=== PATIENT | female | born 1945 | race Hispanic/Latino ===

== ENCOUNTER → 2023-08-02 09:26 | Outpatient (REF) | payer MEDICARE, BC, SELFPAY | LOC: WDC 09:26 | PROVIDERS: ATTENDING PHYSICIAN Family Medicine Geriatric Medicine; FAMILY PHYSICIAN Internal Medicine Geriatric Medicine | DX: M85.89 Other specified disorders of bone density and structure, multiple sites (principal); Z12.31 Encounter for screening mammogram for malignant neoplasm of breast | CPT/HCPCS: 77063; 77067; 77080 ==

== ENCOUNTER → 2023-12-07 10:52 | Outpatient (REF) | payer MEDICARE, BC, SELFPAY | LOC: HWRCS 10:52 | PROVIDERS: ATTENDING PHYSICIAN Internal Medicine Cardiovascular Disease; FAMILY PHYSICIAN Internal Medicine Geriatric Medicine | DX: I10 Essential (primary) hypertension (principal); I35.0 Nonrheumatic aortic (valve) stenosis; Z92.3 Personal history of irradiation | CPT/HCPCS: 93306 ==

== ENCOUNTER → 2024-01-12 10:53 | Outpatient (REF) | payer MEDICARE, BC, SELFPAY ==
[2024-01-12 11:24] LABS: Urine Albumin Negative (Neg - Trace); Urine Bilirubin Negative (Negative); Urine Character Clear (Clear); Urine Color Yellow; Urine Glucose Negative (Negative); Urine Ketone Negative (Negative); Urine Leukocyte Negative (Negative); Urine Nitrite Negative (Negative); Urine Occult Blood Negative (Negative); Urine Urobilinogen Negative (Neg - 1+)
[2024-01-12 11:25] LABS: % Basophils 0.6 % (0-2); % Immature Granulocytes 0.2 % (0-0.5); % Lymphocytes 15.3 % (20.5-51.1); % Monocytes 4.9 % (1.7-9.3); Absolute Basophils 0.1 10^3/uL (0-0.2); Absolute Eosinophils 0.1 10^3/uL (0-0.7); Absolute Lymphocytes 1.4 10^3/uL (1.2-3.4); Absolute Monocytes 0.5 10^3/uL (0.1-0.6); Absolute Neutrophils 7.3 10^3/uL (1.4-6.5); Hematocrit 45.6 % (37.0-47.0); Hemoglobin 15.3 g/dL (12.0-16.0); Mean Corp Hgb Conc. 33.6 g/dL (33.0-37.0); Mean Corpuscular Hgb 30.8 pg (27.0-31.0); Mean Corpuscular Volume 91.8 fL (81.0-99.0); Mean Platelet Volume 9.6 fL (7.4-10.4); Nucleated Red Blood Cells % 0 %; Platelet Count 319 10^3/uL (130-400); Red Blood Cell Count 4.97 10^6/uL (4.20-5.40); Red Cell Dist. Width 12.8 % (11.5-14.5); White Blood Cell Count 9.4 10^3/uL (4.8-10.8)
[2024-01-12 11:27] LABS: Ionized Calcium 1.18 mMOL/L (1.15-1.33)
[2024-01-12 11:55] LABS: ALT (SGPT) 23 U/L (0-35); AST (SGOT) 28 U/L (14-36); Albumin 4.7 g/dl (3.5-5.0); Alkaline Phosphatase 39 U/L (38-126); Blood Urea Nitrogen 14 mg/dl (7-17); Carbon Dioxide 29 mmol/L (22-30); Chloride 99 mmol/L (98-107); Glucose 102 mg/dl (70-99); HDL Cholesterol 73 mg/dl; LDL Cholesterol, Calculated 97 mg/dl; Potassium 4.4 mmol/L (3.5-5.1); Sodium 141 mmol/L (135-145); Total Bilirubin 0.5 mg/dl (0.2-1.3); Total Cholesterol 207 mg/dl (50-199); Total Protein 7.7 g/dl (6.3-8.2); Triglyceride 186 mg/dl (10-149); Very Low Density Lipoprotein 37 mg/dl (0-30); eGFR > 60.00
[2024-01-12 12:11] LABS: Vitamin D, 25-OH*** 54.2 ng/mL (30-80)
== END ==
LOC: REG 10:53
PROVIDERS: ATTENDING PHYSICIAN Nurse Practitioner Adult Health; FAMILY PHYSICIAN Internal Medicine Geriatric Medicine; REFERRING PHYSICIAN Internal Medicine Cardiovascular Disease
DX: C50.112 Malignant neoplasm of central portion of left female breast (principal); M85.80 Other specified disorders of bone density and structure, unspecified site; I10 Essential (primary) hypertension; E78.2 Mixed hyperlipidemia; E78.00 Pure hypercholesterolemia, unspecified; E03.8 Other specified hypothyroidism; I35.0 Nonrheumatic aortic (valve) stenosis; I08.0 Rheumatic disorders of both mitral and aortic valves; E55.9 Vitamin D deficiency, unspecified; H25.9 Unspecified age-related cataract; Z13.89 Encounter for screening for other disorder; C50.412 Malignant neoplasm of upper-outer quadrant of left female breast; Z11.59 Encounter for screening for other viral diseases
CPT/HCPCS: 36415; 80053; 80061; 81003; 82248; 82306; 82330; 85025

== ENCOUNTER → 2024-02-20 11:53 | Outpatient (REF) | payer MEDICARE, BC, SELFPAY ==
[2024-02-20 14:16] LABS: Calcium 9.6 mg/dl (8.4-10.2)
[2024-02-20 14:45] LABS: TSH 1.45 uIU/ml (0.47-4.68)
[2024-02-21 09:52] LABS: Intact PTH 39.6 pg/ml (13.6-85.8)
== END ==
LOC: REG 11:53
PROVIDERS: ATTENDING PHYSICIAN Physician Assistant; FAMILY PHYSICIAN Internal Medicine Geriatric Medicine
DX: E03.9 Hypothyroidism, unspecified (principal); E21.3 Hyperparathyroidism, unspecified; M81.8 Other osteoporosis without current pathological fracture
CPT/HCPCS: 36415; 83970; 84443

== ENCOUNTER → 2024-08-03 10:33 | Outpatient (REF) | payer MEDICARE, BC, SELFPAY | LOC: WDC 10:33 | PROVIDERS: ATTENDING PHYSICIAN Family Medicine Geriatric Medicine; FAMILY PHYSICIAN Internal Medicine Geriatric Medicine | DX: Z12.31 Encounter for screening mammogram for malignant neoplasm of breast (principal); Z85.3 Personal history of malignant neoplasm of breast | CPT/HCPCS: 77063; 77067 ==

== ENCOUNTER → 2024-12-05 09:53 | Outpatient (REF) | payer MEDICARE, BC, SELFPAY | LOC: HWRCS 09:53 | PROVIDERS: ATTENDING PHYSICIAN Internal Medicine Cardiovascular Disease; FAMILY PHYSICIAN Internal Medicine Geriatric Medicine | DX: I35.0 Nonrheumatic aortic (valve) stenosis (principal) | CPT/HCPCS: 93306 ==

== ENCOUNTER → 2025-01-04 11:28 | Outpatient (REF) | payer MEDICARE, BC, SELFPAY ==
[2025-01-04 12:55] LABS: Hematocrit 43.7 % (37.0-47.0); Hemoglobin 14.3 g/dL (12.0-16.0); Mean Corp Hgb Conc. 32.7 g/dL (33.0-37.0); Mean Corpuscular Volume 91.8 fL (81.0-99.0); Nucleated Red Blood Cells % 0 %; Platelet Count 306 10^3/uL (130-400); Red Cell Dist. Width 13.1 % (11.5-14.5)
[2025-01-04 13:37] LABS: ALT (SGPT) 23 U/L (0-35); AST (SGOT) 26 U/L (14-36); Albumin 4.7 g/dl (3.5-5.0); Alkaline Phosphatase 39 U/L (38-126); Blood Urea Nitrogen 14 mg/dl (7-17); Calcium 10.6 mg/dl (8.4-10.2); Carbon Dioxide 32 mmol/L (22-30); Chloride 100 mmol/L (98-107); Glucose 107 mg/dl (70-99); Potassium 5.5 mmol/L (3.5-5.1); Sodium 137 mmol/L (135-145); Total Protein 7.8 g/dl (6.3-8.2); eGFR > 60.00
== END ==
LOC: REG 11:28
PROVIDERS: ATTENDING PHYSICIAN Internal Medicine Cardiovascular Disease; FAMILY PHYSICIAN Internal Medicine Geriatric Medicine
DX: I35.0 Nonrheumatic aortic (valve) stenosis (principal); I10 Essential (primary) hypertension; E78.2 Mixed hyperlipidemia
CPT/HCPCS: 36415; 80053; 85025

== ENCOUNTER → 2025-01-08 08:39 | Outpatient (REF) | payer MEDICARE, BC, SELFPAY ==
[2025-01-08 10:39] LABS: Urine Character Clear (Clear)
[2025-01-08 11:06] LABS: Hematocrit 42.2 % (37.0-47.0); Hemoglobin 14.0 g/dL (12.0-16.0); Mean Corp Hgb Conc. 33.2 g/dL (33.0-37.0); Mean Corpuscular Volume 90.4 fL (81.0-99.0); Nucleated Red Blood Cells % 0 %; Platelet Count 326 10^3/uL (130-400); Red Cell Dist. Width 13.2 % (11.5-14.5)
[2025-01-08 11:44] LABS: Urine Squamous Cell 0-2 /LPF (Few)
[2025-01-08 11:46] LABS: Urine Red Blood Cell 0-2 /HPF (0-2)
[2025-01-08 11:48] LABS: ALT (SGPT) 24 U/L (0-35); AST (SGOT) 29 U/L (14-36); Albumin 4.8 g/dl (3.5-5.0); Alkaline Phosphatase 32 U/L (38-126); Blood Urea Nitrogen 12 mg/dl (7-17); Calcium 9.0 mg/dl (8.4-10.2); Carbon Dioxide 26 mmol/L (22-30); Chloride 100 mmol/L (98-107); Glucose 92 mg/dl (70-99); HDL Cholesterol 71 mg/dl; LDL Cholesterol, Calculated 102 mg/dl; Potassium 4.4 mmol/L (3.5-5.1); Sodium 135 mmol/L (135-145); Total Protein 7.6 g/dl (6.3-8.2); Very Low Density Lipoprotein 25 mg/dl (0-30); eGFR > 60.00
[2025-01-08 12:00] LABS: Vitamin D, 25-OH*** 47.0 ng/mL (30-80)
== END ==
LOC: REG 08:39
PROVIDERS: ATTENDING PHYSICIAN Nurse Practitioner Adult Health; FAMILY PHYSICIAN Internal Medicine Geriatric Medicine; OTHER PHYSICIAN Internal Medicine Cardiovascular Disease; OTHER PHYSICIAN Student in an Organized Health Care Education/Training Program
DX: C50.112 Malignant neoplasm of central portion of left female breast (principal); M85.80 Other specified disorders of bone density and structure, unspecified site; M81.8 Other osteoporosis without current pathological fracture; Z51.81 Encounter for therapeutic drug level monitoring; C50.412 Malignant neoplasm of upper-outer quadrant of left female breast; E78.2 Mixed hyperlipidemia; I10 Essential (primary) hypertension; E78.00 Pure hypercholesterolemia, unspecified; E03.8 Other specified hypothyroidism; I35.0 Nonrheumatic aortic (valve) stenosis; I08.0 Rheumatic disorders of both mitral and aortic valves; E55.9 Vitamin D deficiency, unspecified; H25.9 Unspecified age-related cataract
CPT/HCPCS: 36415; 80053; 80061; 81003; 81015; 82248; 82306; 85025

== ENCOUNTER 2025-01-10 06:03 | Day surgery (SDC) | payer MEDICARE, BC, SELFPAY ==
[2025-01-10] VITALS (15 sets, daily range): BP systolic 129–161; BP diastolic 65–93; BMI 24.7
[2025-01-10] MEDS: LOW STRENGTH ASPIRIN 324 MG PO (07:25)
--- NOTE | 2025-01-10 08:26 | ITS.CL.CATH ---
[facility] - Catheterization
Cardiac Catheterization
Procedure Report:
LEFT HEART CATHETERIZATION
Date of Procedure: January 10, 2025
Referring: Dr. Briana Ureña
PROCEDURES:
1. Coronary angiography
INDICATION: Severe aortic stenosis
ACCESS: Right radial artery, 6 Gabonese sheath
HEMODYNAMICS : (mmHg)
AO (s/d) : 101/54, 110
CORONARY FINDINGS
DOMINANCE: Right
LEFT MAIN: Normal
LEFT ANTERIOR DESCENDING: The LAD arises normally from the left main and runs in the anterior interventricular groove supplying several small diagonal branches along its course. The LAD has only minor irregularities with no focal obstructive
stenosis
CIRCUMFLEX: The circumflex is a large-caliber nondominant vessel with minor irregularities over its course
RIGHT CORONARY ARTERY: Minor luminal irregularities
SEDATION: 26 minutes of procedural sedation was utilized. An independent medical center director was present to assist with and help manage the patient's level of consciousness and physiologic status.
RADIATION SUMMARY: Fluoro Time (min): 2.1, Dose (mGy): 156, DAP (Gy.cm2) : 10.5
Closure Device: TR band
CONCLUSIONS
1. Nonobstructive coronary disease
2. Known severe / high gradient aortic stenosis
RECOMMENDATIONS
1. Patient will be discussed at upcoming TAVR meeting and scheduled for CT scan in anticipation of transcatheter aortic valve
Copy to: Dr. Briana Ureña
--- NOTE | 2025-01-10 08:39 | CONSULT.STRU ---
Consultation
-
Date/Time Consultation Requested: 01/10/2025
Date/Time Consultation Performed: 01/10/2025
Requesting Provider: Néstor Pérez MD
Performing Provider: Grisel Wilburn DNP, CRNP
Reason for Consultation: /TAVR
Patient History
Physicians
Family Physician: Mil Daigle MD
Outpatient Veneer Cutter: Briana Ureña MD
Primary Veneer Cutter: Briana Ureña MD
History of Present Illness
Ms. Duque is a very pleasant 79 yof with a past medical history significant for aortic stenosis, HTN, breast ca with external beam radiation, family history of TAA, and hyperlipidemia. Her most recent echocardiogram from 12/05/2024 is notable for an
EF 70-75%, AV P/M 94/50, TINY 0.7, mild to moderate AI, MAC with mild MR, PAP 31. Her cardiac catheterization form 01/10/2025 demonstrated non-obstructive CAD. From a symptomatology standpoint, patient states she can climb a flight of stairs with
minimal CANNON, however, she does states she has noticed increase in CANNON and fatigue over the past year. Discussed the pathophysiology and treatment options of aortic stenosis including SAVR and TAVR, Explained the evaluation process comprising of lab
work, CT scan, CT surgical consult, dental clearance, and a heart team discussion. TAVR booklet, contact information, prescriptions, and appointments given to patient. Allowed for and answered questions at bedside.
Past Medical History
Past Medical History: Cancer (breast/ beam radiation), CANNON, GERD, HTN, Hypercholesterolemia, DWIGHT, Valvular Disease (aortic stenosis) and Other (osteoporosis)
Past Surgical History
Past Surgical History: Appendectomy, Hysterectomy and Other (lumpectomy)
Dental History
Dr. Julio Horton [facility]-dental clearance form emailed
Family History
Mother: N/A
Father: N/A
Family Medical History: Aneurysm and Cancer
Social History
Alcohol: None
Drug: None
Tobacco: Non-Smoker
Allergies
Allergy/AdvReac Type Severity Reaction Status Date / Time
adhesive tape Allergy Rash Verified 01/10/25 06:39
Cephalosporins Allergy Pharmacy Verified 01/10/25 06:39
to Review
Home Medications
�Medication �Instructions �Recorded �Confirmed �Type
Multivitamin 1 tab PO DAILY 08/27/21 01/10/25 History
Vitamin D3 1 cap PO DAILY 08/27/21 01/10/25 History
carvedilol 12.5 mg tablet 6.25 mg PO BID 08/27/21 01/10/25 History
simvastatin 10 mg tablet 10 mg PO QPM 08/27/21 01/10/25 History
spironolactone 25 mg tablet 12.5 mg PO DAILY 08/27/21 01/10/25 History
amlodipine 2.5 mg tablet 2.5 mg PO DAILY 01/10/25 01/10/25 History
calcium carbonate (Calcium 600) 600 mg PO BID 01/10/25 01/10/25 History
denosumab 60 mg/mL subcutaneous 60 mg SC [id number] 01/10/25 01/10/25 History
syringe (Prolia)
letrozole 2.5 mg tablet 2.5 mg PO DAILY 01/10/25 01/10/25 History
magnesium oxide 150 mg-herbal 1 tab PO DAILY 01/10/25 01/10/25 History
drugs tablet (Beet Root-Magnesium)
STS%
STS %: 4.05
Review of Systems
-
History Source: Patient
General: Reports Fatigue
HEENT: Reports No Symptoms
Respiratory: Reports CANNON
Cardiac: Reports No Symptoms
Abdomen/GI: Reports No Symptoms
: Reports No Symptoms
Musculoskeletal: Reports No Symptoms
Skin: Reports No Symptoms
Neurological: Reports No Symptoms
Vascular: Reports No Symptoms
Physical Exam
Vital Signs
Temp 97.4 F 01/10/25 06:20
Temp route: Oral 01/10/25 06:20
Pulse 67 01/10/25 07:15
Resp Rate 18 01/10/25 06:20
Blood pressure 129/65 01/10/25 06:20
Blood pressure extremity used: Left calf 01/10/25 08:14
Position: Sitting 01/10/25 08:14
SaO2 99 01/10/25 08:14
Oxygen Mode of Delivery Room air 01/10/25 08:14
Can the patient verbally communicate their pain? Yes 01/10/25 08:14
Actual Weight 63.3 kg 01/10/25 06:40
Body Mass Index (BMI) 24.7 01/10/25 06:40
Diagnostic Studies
Procedure Type:�Isolated AVR
Perioperative Outcome Estimate %
Operative Mortality 4.05%
Morbidity & Mortality 7.48%
Stroke 1.28%
Renal Failure 1.77%
Reoperation 2.93%
Prolonged Ventilation 4.04%
Deep Sternal Wound Infection 0.038%
Long Hospital Stay (>14 days) 5.09%
Short Hospital Stay (<6 days)* 40.5%
ECHOCARDIOGRAM 12/05/2024
SUMMARY
1. Left ventricular cavity size is small with mild concentric left ventricular hypertrophy. Hyperdynamic left ventricular systolic function. No regional wall abnormalities are seen. Ejection fraction is 70-75% by Griffith's method of discs. Stage I
diastolic dysfunction suggestive of abnormal relaxation.
2. Right ventricular size and systolic function are within normal limits.
3. Indexed left atrial volume is mildly abnormal (35-41 ml/m2).
4. Calcified and trileaflet aortic valve with restricted leaflet excursion. Doppler findings and restricted movement of the aortic valve cusps are consistent with severe aortic stenosis. The peak and mean aortic valve gradients are 94/50 mmHg,
respectively. The aortic valve area, calculated by the continuity equation, is 0.7 cm². Mild to moderate aortic regurgitation.
5. Mild mitral valve regurgitation.
6. Mild tricuspid regurgitation. PA pressure estimated at 31mmHg.
7. Compared to a prior transthoracic echocardiogram study from 12/07/23 The aortic stenosis has worsened and is now severe. Mean gradient is increased from 36 to 50 mmHg. Aortic valve area has decreased from 1.0 to 0.7 cm sq.
CARDIAC CATHETERIZATION 01/10/2025
HEMODYNAMICS : (mmHg)
AO (s/d) : 101/54, 110
CORONARY FINDINGS
DOMINANCE: Right
LEFT MAIN: Normal
LEFT ANTERIOR DESCENDING: The LAD arises normally from the left main and runs in the anterior interventricular groove supplying several small diagonal branches along its course. The LAD has only minor irregularities with no focal obstructive
stenosis
CIRCUMFLEX: The circumflex is a large-caliber nondominant vessel with minor irregularities over its course
RIGHT CORONARY ARTERY: Minor luminal irregularities
SEDATION: 26 minutes of procedural sedation was utilized. An independent medical records receptionist was present to assist with and help manage the patient's level of consciousness and physiologic status.
RADIATION SUMMARY: Fluoro Time (min): 2.1, Dose (mGy): 156, DAP (Gy.cm2) : 10.5
Closure Device: TR band
CONCLUSIONS
1. Nonobstructive coronary disease
2. Known severe / high gradient aortic stenosis
RECOMMENDATIONS
1. Patient will be discussed at upcoming TAVR meeting and scheduled for CT scan in anticipation of transcatheter aortic valve
Exam
General: Well Developed, Well Nourished, No Apparent Distress and Comfortable
HEENT: Normocephalic
Neck: Trachea Midline
Respiratory: Clear (Anteriorly)
Cardiac: Regular Rhythm and Murmur (III/ PETRA)
GI: Soft and Non Tender
Rectal: Deferred by Provider
Skin: Warm
Neuro: Awake, Alert, Oriented and AO x 3
Psych: Calm
Assessment / Plan
-
Aortic stenosis
Continue TAVR evaluation
Trend creatinine after contrast administration
TAVR CT Scan
CT surgical consult
Frailty testing and [id number] at consult
Initiate aspirin prior to TAVR
Dental clearance
Heart team discussion
Data Reviewed
-
Furnace Erector: Report Reviewed by me and Discussed with Physician
Echo: Report Reviewed by me and Discussed with Physician
Labs: Labs Reviewed by me
Old Records: Reviewed
Total Time Spent with Patient (in minutes): 45
Labs
-
Labs:
01/08/2025
HH: 14.0/42.2
Plt: 326K
BUN/Cr: 12/0.9
GFR >60
== END 2025-01-10 11:46 | disposition home or self-care (01) ==
LOC: CATH 06:03
PROVIDERS: ATTENDING PHYSICIAN Internal Medicine Interventional Cardiology; FAMILY PHYSICIAN Internal Medicine Geriatric Medicine; OTHER PHYSICIAN Internal Medicine Cardiovascular Disease
DX: I08.3 Combined rheumatic disorders of mitral, aortic and tricuspid valves (principal); I25.10 Atherosclerotic heart disease of native coronary artery without angina pectoris; E78.00 Pure hypercholesterolemia, unspecified; G47.33 Obstructive sleep apnea (adult) (pediatric); I11.9 Hypertensive heart disease without heart failure; M81.0 Age-related osteoporosis without current pathological fracture; Z79.811 Long term (current) use of aromatase inhibitors; Z79.899 Other long term (current) drug therapy; Z80.9 Family history of malignant neoplasm, unspecified; Z83.49 Family history of other endocrine, nutritional and metabolic diseases; Z88.1 Allergy status to other antibiotic agents; Z90.49 Acquired absence of other specified parts of digestive tract; Z90.710 Acquired absence of both cervix and uterus
CPT/HCPCS: 99152; 99153; 93454; 93458; C1769; C1894; Q9967

== ENCOUNTER → 2025-01-17 08:47 | Outpatient (REF) | payer MEDICARE, BC, SELFPAY ==
[2025-01-17 09:56] LABS: Blood Urea Nitrogen 12 mg/dl (7-17); Calcium 9.2 mg/dl (8.4-10.2); Carbon Dioxide 26 mmol/L (22-30); Chloride 105 mmol/L (98-107); Glucose 119 mg/dl (70-99); Potassium 4.5 mmol/L (3.5-5.1); Sodium 137 mmol/L (135-145); eGFR > 60.00
== END ==
LOC: REG 08:47
PROVIDERS: ATTENDING PHYSICIAN Nurse Practitioner Acute Care; FAMILY PHYSICIAN Internal Medicine Geriatric Medicine
DX: I35.0 Nonrheumatic aortic (valve) stenosis (principal)
CPT/HCPCS: 36415; 80048

== ENCOUNTER → 2025-01-24 08:53 | Outpatient (REF) | payer MEDICARE, BC, SELFPAY | LOC: RAD 08:53 | PROVIDERS: ATTENDING PHYSICIAN Nurse Practitioner Acute Care; FAMILY PHYSICIAN Internal Medicine Geriatric Medicine | DX: I35.0 Nonrheumatic aortic (valve) stenosis (principal) | CPT/HCPCS: 74174; 75572; Q9967 ==

== ENCOUNTER 2025-02-21 07:13 | Inpatient (IN) | payer MEDICARE, BC, SELFPAY ==
[2025-02-15 09:14] VITALS: BMI 24.6
[2025-02-15 10:09] LABS: Urine Character Clear (Clear)
[2025-02-15 10:11] LABS: Hematocrit 42.3 % (37.0-47.0); Hemoglobin 13.7 g/dL (12.0-16.0); Mean Corp Hgb Conc. 32.4 g/dL (33.0-37.0); Mean Corpuscular Volume 91.4 fL (81.0-99.0); Nucleated Red Blood Cells % 0 %; Platelet Count 265 10^3/uL (130-400); Red Cell Dist. Width 12.9 % (11.5-14.5)
[2025-02-15 10:28] LABS: INR 1.02; PT 13.7 Sec (11.4-14.6)
--- NOTE | 2025-02-15 10:38 | CM ---
Met with Mrs. Duque is [place] . She states prior to admission she resides alone in a bi-level home with fourteen steps to enter. She state she has a first floor step once in the home. The first floor is the garage. She states prior to admission
she was independent with ambulation and adls. She states she does not have any DME in the home. She states she has a prescription freeman and uses [facility]. She states her niece for [place] will be coming out to stay a week with her. The
discharge plan is to return home with her niece staying with her for a week and a home visit by the Transitional Care Nurse when medically stable.
We reviewed pre-op and post-op routines. We reviewed the shower instructions. She has the soap, and the written instructions. She already has the TAVR Educational Booklet. We also reviewed restrictions including driving and lifting restrictions.
We discussed a home visit by the Transitional Care Nurse. She is agreeable to a home visit. The plan is for TAVR on , 02/2025.
[2025-02-15 10:42] LABS: Urine Squamous Cell 0-2 /LPF (Few); Urine Urothelial Cell 0-2 /LPF (FEW)
[2025-02-15 10:51] LABS: ALT (SGPT) 21 U/L (0-35); AST (SGOT) 25 U/L (14-36); Albumin 4.4 g/dl (3.5-5.0); Alkaline Phosphatase 29 U/L (38-126); Blood Urea Nitrogen 13 mg/dl (7-17); Calcium 9.2 mg/dl (8.4-10.2); Carbon Dioxide 29 mmol/L (22-30); Chloride 101 mmol/L (98-107); Estimated Creatinine Clearance 47 ml/min; Glucose 86 mg/dl (70-99); Potassium 4.5 mmol/L (3.5-5.1); Sodium 135 mmol/L (135-145); Total Protein 7.2 g/dl (6.3-8.2); eGFR > 60.00
[2025-02-15 11:32] LABS: Glycohemoglobin (HgbA1c) 5.9 % (4.0-5.9)
[2025-02-21] VITALS (15 sets, daily range): BP systolic 101–162; BP diastolic 56–78; BMI 24.4
[2025-02-21] MEDS: ANCEF 10 IV ×2 (08:44→11:00)
[2025-02-21 10:33] LABS: ACT-LR - POC 263 Seconds (116-155)
--- NOTE | 2025-02-21 10:49 | W.CVOR.SURPR ---
CVOR Surgeon Immed Pre Op
-
I have examined this patient prior to performance of the scheduled procedure.
The patient's condition is unchanged from the time of the dictated/written History and
Physical and the patient is able to undergo the scheduled procedure.
--- NOTE | 2025-02-21 10:50 | W.IMMPOSTOP ---
Surgical Immed Post Op Note
-
[id number]
STRUCTURAL HEART PROCEDURE NOTE:
Preoperative diagnosis:
Severe aortic stenosis with peak/mean valve gradients of 90/50 mmHg respectively with calculated TINY of 0.7. She had mild to moderate associated aortic insufficiency
Mild mitral regurgitation
Hypertension
Hypertensive heart disease without CHF
Hypercholesterolemia
Gastroesophageal reflux disease
Osteoporosis
Breast cancer, left breast (07/2021)
Family history of aortic aneurysmal disease
Postop diagnoses:
Same
Procedures:
1. Left OCCUPATIONAL MEDICINE PHYSICIAN access with tactile, ultrasound, and fluoroscopic guidance, micropuncture technique, limited angiography, 6 South Sudanese sheath placement
2. Left CFV access with ultrasound and fluoroscopic guidance, Seldinger technique, 6 South Sudanese sheath placement
3. Right OCCUPATIONAL MEDICINE PHYSICIAN access with tactile, ultrasound, and fluoroscopic guidance, micropuncture technique, limited angiography, 6 South Sudanese sheath placement
4. Placement of temporary RV pacing wire under fluoroscopic guidance, threshold testing
5. Placement of pigtail catheter in RCC with limited aortography and confirmation of coplanar valve deployment views
6. Perclose placement x 2 into right OCCUPATIONAL MEDICINE PHYSICIAN, subsequent 8 South Sudanese sheath placement
7. Placement of Mendoza E sheath via right OCCUPATIONAL MEDICINE PHYSICIAN access, systemic heparin
8. Wire purchase across patient's stenotic aortic valve (AL-1, soft-tipped straight, LVEDP assessment [21 mmHg], extra-stiff wire)
9. Visual inspection of TAVR valve
10. Right TF TAVR with placement of 20 mm TREVON 3 Resilia valve (+1)
11. Completion aortography
12. Completion TTE assessment (mean gradient 8 mmHg, no AI/PVL)
13. Removal of valve delivery system and Mendoza E sheath from right OCCUPATIONAL MEDICINE PHYSICIAN with management with Perclose sutures x 2, manual pressure
14. Completion iliofemoral angiography
15. Removal of left OCCUPATIONAL MEDICINE PHYSICIAN 6 South Sudanese sheath with management with 6 South Sudanese Angio-Seal, manual pressure, protamine administration
16. Removal of temporary transvenous pacing wire
17. Removal of left CFV 6 South Sudanese sheath with manual pressure
vector control specialist:
Dr. Néstor Pérez
Cardiac Surgeon:
Dr. Jony Toledo
Anesthesia:
MAC and local to bilateral groins
Implants:
Mendoza [employer] 20 mm TREVON 3 Resilia valve, serial number: [id number]
Perclose sutures x 2 to right OCCUPATIONAL MEDICINE PHYSICIAN
6 South Sudanese Angio-Seal x 1 to left OCCUPATIONAL MEDICINE PHYSICIAN
Cath Data:
Start: 1006hrs, Deploy: 1035hrs, End: 1046hrs
FT: 7.0min, mGy: 197.53, DAP: 18.2918, Contrast: 110mL
Post-TTE: mean gradient 8mmHg, no AI/PVL
Complications:
None
Condition:
Stable/guarded to recovery
--- NOTE | 2025-02-21 11:05 | ITS.CL.TAVR ---
[employer] Machine Operator - TAVR Report
TAVR PRocedure
Procedure Report:
TRANSCATHETER AORTIC VALVE REPLACEMENT
Date of Procedure: February 21, 2025
Referring: Dr. Briana Ureña
Operators: Drs. Néstor Pérez and Jony Toledo
PROCEDURE PERFORMED:
1. Successful placement of 20 mm Mendoza Krysta S3 aortic valve via right common femoral approach.
PREPROCEDURE NYHA CLASS: 2
DESCRIPTION OF PROCEDURE: The patient was referred for assessment of severe symptomatic aortic stenosis and following a comprehensive evaluation it was felt that transcatheter aortic valve replacement (TAVR) would be the most appropriate treatment.
Informed consent was obtained prior to the procedure. A 'time-out' was called and the procedural plan was verbally confirmed by anesthesia, surgery, perfusion, and labor/excavator staff.
Arterial was obtained in the left common femoral artery using ultrasound guidance and micropuncture technique. A 6 Fr sheath was inserted. Ultrasound guidance was then utilized to gain access into the left common femoral vein and a 6 Fr sheath was
inserted. Attention was then turned to the right common femoral artery. Ultrasound guidance was utilized and access was obtained in the right common femoral artery using ultrasound guidance. Angiography through the micropuncture sheath revealed
appropriate positioning of the arteriotomy for preclosure with 2 Perclose devices. A 0.035 inch J-wire was then reinserted through the micropuncture sheath and a 6 Fr sheath was then inserted.
A transvenous pacemaker wire was then advanced from the left common femoral vein to the right ventricular apex where excellent pacing thresholds were obtained.
An angled pigtail catheter was then advanced through the left common femoral sheath and positioned in the proximal ascending thoracic aorta / right coronary cusp. Angiography was performed to define a coplanar angle facilitating positioning and
delivery of the TAVR device. DOMINICAN 6/CAU 7 appear to be a reasonable coplanar angle.
Pre-closure of the right femoral arteriotomy was then performed using 2 Perclose devices and was followed by placement of an 8 Fr arterial sheath.
An AL-1 catheter was then advanced to the proximal descending thoracic aorta over 0.035' J-tipped guidewire. An Amplatz Extra-Stiff wire was then advanced through the AL-1 catheter to the proximal descending thoracic aorta. The AL-1 catheter was
removed and the supportive wire was utilized to facilitate delivery of the Mendoza eSheath and dilator. Heparin, 6000 units, was administered and the ACT was monitored throughout the procedure.
The AL-1 catheter was then readvanced through the Mendoza eSheath. The 0.035' stiff wire was allowed to drift across the aortic arch and the AL1 was positioned just above the aortic valve. The stenotic leaflets were probed with a Soft-tip Straight
wire. The aortic leaflets were crossed and the AL-1 catheter followed the Soft-tip Straight wire to the mid left ventricle. The wire was removed. Left ventricular end-diastolic pressures was measured at 21 mmHg.
An Amplatz Extra-Stiff wire with a generous curved tip was then advanced to the mid left ventricle. The AL-1 catheter was removed and the Amplatz wire was left in place in order to facilitate delivery of the Mendoza delivery system. A 20 mm
Mendoza KRYSTA S3 valve +1 mL of additional volume was brought to the table. The orientation of the valve on the balloon delivery system was confirmed by all operators. The KRYSTA S3 valve was advanced through the eSheath and into the proximal
descending thoracic aorta. The KRYSTA valve was centered on the delivery balloon and the entire system was retroflexed across the aortic arch in an DOMINICAN projection. The KRYSTA S3 delivery system was then advanced across the stenotic aortic
leaflets. The pusher was retracted. Angiography confirmed appropriate positioning of the valve and rapid pacing was undertaken. The 20 mm KRYSTA S3 valve was deployed during rapid pacing. Valve deployment was uneventful. Aortography following
valve deployment suggested trivial aortic insufficiency while the wire was still across the valve in the left ventricle.
The post valve deployment transthoracic echocardiogram was notable for no aortic insufficiency and an aortic valve gradient of 8 mmHg.
The Mendoza valve delivery system was removed. The Mendoza eSheath was removed and the Perclose knots were advanced to the arteriotomy site with excellent hemostasis. Angiography after the Perclose knots were advanced to the arteriotomy site and
demonstrated good distal runoff.
A 6 Montenegrin Angio-Seal was then utilized to obtain hemostasis in the left common femoral artery. The temporary pacemaker and 6 Fr sheath were removed and manual pressure was held over the 6 Montenegrin femoral venous access.
Protamine was administered to reverse the intravenous anticoagulant.
Fluoro Time: 7.0 min, Dose: 197.5 mGy, DAP : 18.3 gy.cm2
CONCLUSIONS:
1. Severe symptomatic aortic stenosis. Successful deployment of a 20 mm KRYSTA S3 valve with a post valve deployment mean gradient of 8 mmHg
2. The right arteriotomy was closed with 2 Perclose devices and successful closure of the left arteriotomy site with a 6 Fr Angio-Seal
Copy to: Dr. Briana Ureña
--- NOTE | 2025-02-21 12:35 | PTCARENOTE ---
Received pt from [facility] into 2253. Pt is AAOx3 SR on the monitor VSS b/l groin dressing sites c/d/i. neuro intact. POC discussed with pt and family at bedside. See flowsheet for VS and Full assessment
--- NOTE | 2025-02-21 14:40 | CM ---
Chart reviewed. Patient is in the OR today. Patient is independent of ADLS, lives with alone in a bilevel house, 14 BONNY, 0 DME. Patient's niece from [place] to stay with the patient after surgery for a week. Plan is for the patient to return
home with her niece and CT Transitional RN. CM to follow
[2025-02-21] MEDS: ANCEF 5 IV (16:44)
[2025-02-21] MEDS: LIPITOR 40 MG PO (16:45)
[2025-02-21] MEDS: OSCAL CAL 500 PO (20:27)
[2025-02-21] MEDS: TUMS CHEWABLE TABLET 200 MG PO (21:25)
--- NOTE | 2025-02-21 23:48 | PTCARENOTE ---
Received pt @ change of shift. OOB in chair. AAOx3, VSS-- NSR on monitor. Right groin dressing has oozing marked from previous shift. Day and nightshift nurse assessed together-- no change from earlier. Discussed changing dressing in the morning to
not disrupt clotting. Pt verbalizes understanding. Groin site soft, nontender, no ecchymosis, or hematoma present @ this time. Left groin CDI. Site soft, nontender, no ecchymosis or hematoma present @ this time. Sacral foam in place from procedure--
skin dry and intact underneath. Discussed plan of care for evening and morning, including ECHO, CXray, labs and EKG to be completed in AM. Pt verbalizes understanding. Call sharma within reach.
[2025-02-22] VITALS (8 sets, daily range): BP systolic 135–197; BP diastolic 75–106; PULSE 100; O2SAT 97; BMI 24.6
--- NOTE | 2025-02-22 02:19 | PTCARENOTE ---
Rt groin dressing changed. No oozing present @ this time.
[2025-02-22 03:01] LABS: Hematocrit 38.4 % (37.0-47.0); Hemoglobin 12.6 g/dL (12.0-16.0); Mean Corp Hgb Conc. 32.8 g/dL (33.0-37.0); Mean Corpuscular Volume 91.2 fL (81.0-99.0); Platelet Count 203 10^3/uL (130-400); Red Cell Dist. Width 13.2 % (11.5-14.5)
[2025-02-22 03:19] LABS: Blood Urea Nitrogen 13 mg/dl (7-17); Calcium 8.8 mg/dl (8.4-10.2); Carbon Dioxide 25 mmol/L (22-30); Chloride 103 mmol/L (98-107); Estimated Creatinine Clearance 53 ml/min; Glucose 105 mg/dl (70-99); Potassium 4.0 mmol/L (3.5-5.1); Sodium 133 mmol/L (135-145); eGFR > 60.00
--- NOTE | 2025-02-22 05:01 | W.PN.CT ---
Today's Communication / Plan
-
-pod #1
-no issues overnight
-new transient LBBB post TAVR - resolved. Coreg is on hold - consider resuming
-nsr 80s-90s. No tangela or pauses overnight
-Echo today
-current meds (ASA, Norvasc, Lipitor, Aldactone)
-will need outpatient monitor
-ambulate
-possible d/c
Assessment / Plan
-
- Severe symptomatic - s/p Right TF TAVR with placement of 20 mm TREVON 3 Resilia valve (+1) on 02/21/25, pod #1
- LVEDP assessment [21 mmHg]
- Post-TTE: mean gradient 8mmHg, no AI/PVL
- Mild mitral regurgitation
- Hypertension
- Hypertensive heart disease without CHF
- Hypercholesterolemia
- Gastroesophageal reflux disease
- Osteoporosis
- Breast cancer, left breast (07/2021)
- Family history of aortic aneurysmal disease
- Acute postop transient LBBB - resolved
Discussed patient care with: Nursing and Care Team
Subjective
-
Date of Service: February 22, 2025
Objective Data
-
Lab Results
02/22/25 02:12
02/22/25 02:12
PT 13.7 Sec (11.4-14.6) 02/15/25 09:23
INR 1.02 02/15/25 09:23
Vital Signs
Vital Signs
Temp Pulse Resp BP Pulse Ox
99.7 F 94 18 150/82 96
02/22/25 02:02 02/22/25 03:30 02/22/25 02:02 02/22/25 02:02 02/22/25 02:02
CT Intake/Output/Weight
02/21/25 02/21/25 02/22/25
06:59 18:59 06:59
Intake Total 900 / 900
Balance 900 / 900
SaO2: 96
Physical Exam
-
General: Awake and AOx3
Cardiovascular: Regular rate & rhythm, No Murmurs and No Rub
Respiratory: Decreased Breath Sounds
Incision: Clean (groins are cdi, soft, nontender, no hematoma b/l)
Extremities: No Edema
Abdomen: soft, nontender, nondistended, + bowel sounds
Data Reviewed
-
Lab Results: Results Reviewed
Medications: Active Meds Reviewed
Chest X-Ray: Report Reviewed and Image Reviewed
ECG: Report Reviewed and Image Reviewed
--- NOTE | 2025-02-22 07:38 | W.PN.ANS.POP ---
Anesthesia Post Operative
- Anesthesia Post Op Note
Vital Signs Stable-See Nursing Note: Yes
Airway Patent: Yes
Adequate Pain Control: Yes
Change in Mental Status: No
Current Postoperative Nausea & Vomiting: No
Anesthesia Complications: No
General Anesthetic Recall: No
Unplanned Admission: No
Post Op Hydration Adequate: Yes
--- NOTE | 2025-02-22 07:39 | W.DCSUMMARY ---
Discharge Summary
Discharge Data
Date of Admission: 02/21/25
Date of Discharge: 02/22/25
Total time spent discharging patient (in min): 35
-
Pending Results: No
Hospital Course
Primary care physician:
Dr. Daigle
Outpatient team driver:
Dr. Briana Ureña
Inpatient consultants:
[facility]
Procedures:
1. R TF TAVR (Mendoza S3 Resilia #20)
Primary Diagnosis:
1. Severe Aortic Stenosis
Secondary Diagnoses:
1. Acute postop transient LBBB (resolved)
2. Mild mitral regurgitation.
3. Hypertension.
4. Hypertensive heart disease without congestive heart failure.
5. Hypercholesterolemia.
6. Gastroesophageal reflux disease.
7. Osteoporosis.
8. Breast cancer, left breast (07/2021).
9. Family history of aortic aneurysmal disease.
HPI: 79-year-old female with severe aortic stenosis presents electively on 02/25 transfemoral transcatheter aortic valve replacement with Dr. Toledo.
Hospital course:
Patient was electively admitted on 02/21 for a transcatheter aortic valve replacement with Dr. Toledo. Patient had a transient left bundle branch block intraoperatively which resolved postprocedure. B/l groins remain stable. She was sent to IVU
for the remainder of their recovery. On 02/22, POD #1, B/L groins remained stable. Repeat TTE showed ejection fraction of 70% a trace perivalvular leak, a peak aortic valve gradient of 16.8 mmHg and a mean gradient of 9 mmHg. Due to her transient
left bundle branch block she will be discharged with a heart monitor.
Home medication changes:
See below
Discharge Plan
-
Patient Disposition: Home (Routine Discharge)
Discharge Diagnosis/Procedures: TF TAVR
Condition: Good
Diet: Low Fat, Low Cholesterol and 2 Gram Sodium
Activity: As tolerated
Driving Restrictions: No driving for 1 week
Bathing Restrictions: OK to Shower
Others Tests: your 30-day follow up echo: March 22 @ 2pm @ [facility]
Other Services: Cardiac Rehab
Wound Care: NO lotions, powders, or creams to puncture sites
Specialty Instructions: Weigh Daily- Call MD for wt gain/loss 3 lbs overnight/5 lbs in 1 week
Activity Restrictions/Additional Instructions:
Call the cardiology office if your blood pressure is consistently greater than 145/80
Referrals:
CT Transitional Care Nurse [Outside]
Referral Note: The Cardiothoracic Transitional Care Nurse will call you to set up a visit in 1-2 days.
Mil Daigle MD [Family Provider, Internal Medicine]
Nan Wilson PA-C [Specified Professional Personl, Cardiology] - 04/01/25 11:20 am
Additional Discharge Medication Instructions: Please note that your Coreg dose has been reduced. If your blood pressure is consistently above 140 please call the [facility] office
Prescriptions:
Continued
spironolactone 25 MG tablet
25 mg PO DAILY
amlodipine 2.5 mg Tablet
2.5 mg PO DAILY
letrozole 2.5 mg Tablet
2.5 mg PO DAILY
Prolia 60 mg/mL Syringe
60 mg SC [id number]
multivitamin Tablet
1 tab PO DAILY Qty: 0 0RF
simvastatin 10 MG tablet
10 mg PO QPM Qty: 0 0RF
calcium carbonate [Calcium 600] 600 mg calcium (1,500 mg) Tablet
600 mg PO BID Qty: 0 0RF
aspirin 81 mg Tablet,Chewable
81 mg PO DAILY Qty: 0 0RF
cholecalciferol (vitamin D3) 50 mcg (2,000 unit) Tablet
50 mcg PO DAILY Qty: 0 0RF
Beet Root Extract
1 unit PO DAILY Qty: 0 0RF
Changed
carvedilol 12.5 MG tablet
6.25 mg PO BID Qty: 0 0RF
Discharge Orders:
Discharge Patient (As Directed); Ordered 02/22/25
Ordered By: Jemma Flood
Care Plan Goals
Care Plan Goals:
Problem: Readiness for enhanced knowledge related to diagnosis and treatment plan
Goal: Understand your diagnosis and treatment plan needs, including medications if applicable.
Instructions: Know your diagnosis, underlying causes and treatment plan options, including medications if applicable. Consult with your health care team to learn about your diagnosis and treatment plan, including medications if applicable.
Discharge Date and Time
Print Language: MARTINIQUAIS
[2025-02-22] MEDS: OSCAL CAL 500 500 MG PO (08:41)
[2025-02-22] MEDS: LASIX 20 MG PO (08:41)
[2025-02-22] MEDS: LOW STRENGTH ASPIRIN 81 MG PO (08:41)
[2025-02-22] MEDS: NORVASC 2.5 MG PO (08:41)
[2025-02-22] MEDS: VITAMIN D3 (cholecalciferol) 50 MCG PO (08:42)
[2025-02-22] MEDS: FEMARA 2.5 MG PO (08:42)
[2025-02-22] MEDS: THERAGRAN 1 TABLET PO (08:42)
[2025-02-22] MEDS: ALDACTONE 25 MG PO (08:42)
--- NOTE | 2025-02-22 09:01 | W.PN.CARDCBS ---
Addendum entered and electronically signed by Briana Ureña MD 02/22/25 12:46:
I saw and examined the patient.
The Scale Tank Operator's note was reviewed and I agree with the note.
Comment: Exam is stable. Regular rate and rhythm. No significant murmur. No edema. Lungs are clear.
Impression:
Severe status post TAVR With 20 mm TREVON 3 Resilia valve
Transient postprocedure left bundle branch block.
Hypertension
Hyperlipidemia
Prior breast cancer
Plan:
Echo stable.
Telemetry stable.
EKG stable. Left bundle branch block not further seen.
Carvedilol dose decreased from 12.5 mg twice daily to 6.25 mg twice daily
Monitor placed for discharge to watch for advancing conduction system abnormalities. Discussed with patient and her niece at the bedside. She will call if any issues noted. Increased risk for pacemaker need discussed.
Blood pressure is elevated. She will start lower dose of carvedilol. Monitor blood pressure at home and she will call if greater than 145 systolic. We will also reach out to office to check on her Tuesday/Tuesday.
Antibiotic prophylaxis for dental discussed.
Original Note:
Today's Communication / Plan
-
Echo pending
New LBBB post-procedure, resolved. OK to resume coreg.
Will discharge with Rhythn star monitor in place.
For possible discharge later today, cardiology follow up arranged.
Impression / Plan
-
Appointment Clerk: Dr. Briana Ureña
Impression:
Severe s/p R TF TAVR 02/21/2025
HTN
HLD
h/o breast cancer
Echo 12/05/2024: EF 70-75%, mild cLVH, stage I diastolic dysfunction, severe with peak/mean gradients 94/50 mmHg, TINY 0.7 cm2, mild to moderate AR, mild MR, mild TR, estimated PAP 31 mmHg
Echo 02/22/2025: Study pending
Plan:
-Known h/o severe, symptomatic . Underwent successful R TF TAVR 02/21/2025.
-Seen this AM and feeling well, sitting up in bed eating breakfast.
-New LBBB post-TAVR, but has resolved.
-No significant bradycardia or pauses noted on tele overnight.
-Coreg has been on hold, but OK to resume at discharge.
-Will discharge with 14 day Rhythm star monitor in place.
-Echo pending this AM. Await results.
-Continue aspirin, spironolactone, amlodipine, lipitor.
-If echo stable, for possible discharge later today. Cardiology follow up has been arranged.
Progress Note - Appointment Clerk
Subjective
Date of Service: February 22, 2025
No complaints. Feeling well this AM.
Objective
Labs:
02/22/25 02:12
02/22/25 02:12
Labs
Hgb 12.6 g/dL (12.0-16.0) 02/22/25 02:12
Hct 38.4 % (37.0-47.0) 02/22/25 02:12
Plt Count 203 10^3/uL (130-400) D 02/22/25 02:12
PT 13.7 Sec (11.4-14.6) 02/15/25 09:23
INR 1.02 02/15/25 09:23
Sodium 133 mmol/L (135-145) L 02/22/25 02:12
Potassium 4.0 mmol/L (3.5-5.1) 02/22/25 02:12
BUN 13 mg/dl (7-17) 02/22/25 02:12
Creatinine 0.7 mg/dL (0.6-1.0) 02/22/25 02:12
Glucose 105 mg/dl (70-99) H 02/22/25 02:12
Vital Signs and I&O:
Vital Signs
Temp Pulse Resp BP Pulse Ox
99.9 F 103 20 146/79 96
02/22/25 06:59 02/22/25 08:41 02/22/25 06:59 02/22/25 08:41 02/22/25 06:59
Vital Signs
Temp Pulse Resp BP Pulse Ox
99.9 F 103 20 146/79 96
02/22/25 06:59 02/22/25 08:41 02/22/25 06:59 02/22/25 08:41 02/22/25 06:59
Intake & Output
02/20/25 02/21/25 02/22/25 02/23/25
06:59 06:59 06:59 06:59
Intake Total 900 / 900
Balance 900 / 900
Physical Exam
Physical Exam
GEN: No distress, awake, alert, oriented x3
HEENT: supple, anicteric, mmm
LUNGS: CTA b/l, no wheezes/rales
CV: Reg, S1/S2, no murmur
EXT: No clubbing, cyanosis, or edema
NEURO: Gross non-focal
SKIN: Warm, dry, no rash
[2025-02-22] MEDS: COREG 6.25 MG PO (10:22)
--- NOTE | 2025-02-22 13:17 | PTCARENOTE ---
~[id number]: Handoff report received from nightshift RN. Pt AOx4, NSR/ST 90s-100s on tele, SBP 140s, RA satting 96%. Pt denies pain at this time. B/L groin sites CDI and soft with no signs of bleeding or hematoma noted. Protective foam on sarum from
procedural area, skin intact underneath. Pt independent in room. ECHO completed bedside. All needs met at this time, call sharma within reach.
~[id number]: Coreg restarted by cardiology, dose given per order. Patient worked with Cardiac rehab.
~[id number]: Rhythm star delivered to room and reviewed with patient and friend by rep. Dr. Ureña in to see patient and reviewed ECHO. DC orders in. Tele monitor and PIVs removed from patient. Patient dressed independently. DC paperwork reviewed
with patient and friend. Patient DC'd home with all belongings and rhythm star material in stable condition.
== END 2025-02-22 13:15 | disposition home or self-care (01) | DRG 267 ==
LOC: IVU 07:13
PROVIDERS: Physician Assistant Medical; ADMITTING PHYSICIAN Thoracic Surgery (Cardiothoracic Vascular Surgery); CONSULT PHYSICIAN Internal Medicine Interventional Cardiology; FAMILY PHYSICIAN Internal Medicine Geriatric Medicine
PROC: 02RF38Z Replacement of Aortic Valve with Zooplastic Tissue, Percutaneous Approach (ICD-10-PCS; 2025-02-21)
DX: I35.2 Nonrheumatic aortic (valve) stenosis with insufficiency (principal); Z00.6 Encounter for examination for normal comparison and control in clinical research program; I44.7 Left bundle-branch block, unspecified; I11.9 Hypertensive heart disease without heart failure; E78.00 Pure hypercholesterolemia, unspecified; K21.9 Gastro-esophageal reflux disease without esophagitis; M81.0 Age-related osteoporosis without current pathological fracture
CPT/HCPCS: 33361; 36415; 71045; 71046; 80048; 80053; 81003; 81015; 82248; 83036; 83880; 85025; 85027; 85347; 85610; 86850; 86900; 86901; 87070; 87086; 93005; 93308; 93321; 93325; C1760; C1769; C1894; Q9967

== ENCOUNTER → 2025-03-25 13:55 | Outpatient (REF) | payer MEDICARE, BC, SELFPAY | LOC: RCS 13:55 | PROVIDERS: ATTENDING PHYSICIAN Internal Medicine Cardiovascular Disease; FAMILY PHYSICIAN Internal Medicine Geriatric Medicine | DX: I35.0 Nonrheumatic aortic (valve) stenosis (principal); Z95.2 Presence of prosthetic heart valve | CPT/HCPCS: 93306 ==